=== PATIENT | female | born 1990 | race Caucasian/White ===

== ENCOUNTER 2020-05-20 13:13 | Inpatient (IN) | payer BC ==
[~2020-05-20] VITALS: Ht 154.9 cm; Wt 65.8 kg
--- NOTE | 2020-05-20 13:25 | NUR ---
Pt c/o upper Q ABD pain x3 days with n/d (watery, green), associated upper back pain, and occasional right flank pain. Pt denies CP, SOB, dizziness, no other complaints, no distress noted.
[2020-05-20] MEDS ORDERED: IV NORMAL SALINE 1000 ML BAG IV ONE (13:45)
[2020-05-20 14:11] LABS: BASOPHILS % (AUTO) 0.4 % (0.0-2.0); EOSINOPHILS % (AUTO) 0.3 % (0.0-7.0); HEMATOCRIT 42.5 % (31.2-41.9); HEMOGLOBIN 14.9 g/dL (10.9-14.3); LYMPHOCYTES # (AUTO) 1.1 K/uL (20.0-40.0); LYMPHOCYTES % (AUTO) 22.1 % (20.5-51.5); MEAN CORPUSCULAR HGB CONC 35 g/dL (32.3-35.6); MEAN CORPUSCULAR VOLUME 91.6 fL (75.5-95.3); MONOCYTES # (AUTO) 0.6 K/uL (2.0-10.0); MONOCYTES % (AUTO) 12.8 % (0.0-11.0); NEUTROPHILS # (AUTO) 3.1 K/uL (1.8-8.9); NEUTROPHILS % (AUTO) 64.4 % (38.5-71.5); PLATELET COUNT (AUTO) 285 K/uL (179-408); RED BLOOD CELL COUNT(AUTO) 4.64 MIL/uL (3.63-4.92); WHITE BLOOD COUNT (AUTO) 4.8 K/uL (3.8-11.8)
[2020-05-20 14:21] LABS: BILIRUBIN,DIRECT 0.2 mg/dL (0.0-0.2); BILIRUBIN,TOTAL 0.5 mg/dL (0.2-1.0); CREATININE 0.8 mg/dL (0.6-1.3); POTASSIUM 3.1 mmol/L (3.5-5.1); TOTAL PROTEIN, SERUM 7.7 g/dL (6.4-8.2)
--- NOTE | 2020-05-20 15:53 | NUR ---
Swabbed pt for Covid test, took to lab. Pt in bed, no complaints, no distress noted.
[2020-05-20] MEDS ORDERED: ONDANSETRON 4 MG/2 ML VIAL IV PRN (16:00)
[2020-05-20] MEDS ORDERED: Z GUARD REMEDY PASTE 57 GM TUBE TOP PRN (16:00)
[2020-05-20 16:18] LABS: *BLOOD, URINE 2+ (NEGATIVE); *CLARITY,URINE CLOUDY (CLEAR); *COLOR,URINE YELLOW (YELLOW); *KETONES,URINE 2+ (NEGATIVE); *UROBILINOGEN,URINE 0.2 E.U./dl (NORMAL); LEUKOCYTE ESTERASE ,URINE NEGATIVE (NEGATIVE); NITRITE, URINE NEGATIVE (NEGATIVE); UGLUCOSE NEGATIVE (NEGATIVE)
[2020-05-20 16:19] LABS: *BILIRUBIN,URIN 1+ (NEGATIVE)
--- NOTE | 2020-05-20 16:27 | NUR ---
Radiology called to say that "Small bowel follow-thru" will be done in AM, w/pt NPO from Midnight. [employer] RECORDER made aware.
--- NOTE | 2020-05-20 18:04 | NUR ---
Called report to ARTURO Gaitan.
[2020-05-20 18:17] LABS: WBC,URINE 0-3 /HPF (0-3)
[2020-05-20 18:18] LABS: BACTERIA,URINE RARE /HPF (NONE SEEN); SQUAMOUS EPITHELIAL CELL,UR FEW /HPF (NONE SEEN); URINE AMORPHOUS URATE MODERATE /HPF
--- NOTE | 2020-05-20 18:35 | NUR ---
Pt received on the unit, oriented to the floor. Pt states she has a tolerable pain level of 3/10 pain to right upper abdomen, same as when she was admitted. No acute distress. Pt has right AC 20 matilda IV, intact, and patent. Plan of care discussed including NPO at midnight for small bowel follow through Xray tomorrow and GI consult. Skin intact. NKA. Requests further information on DNR measures. All comfort and safety needs attended to at this time. Call light placed within reach. Will continue to monitor and endorse to oncoming [employer] shift lead.
[2020-05-20 18:38] VITALS: BP 144/65
--- NOTE | 2020-05-20 19:30 | NUR ---
Pt in bed awake. Pt c/o of 3/10 pain in the right upper abdomen. Will assess and check if PRN pain medication is already available. RAC is intact. Pt's current K level is 3.1. Will carry out order for 4 bags (40meq total) of KCL. Pt is NPO. Otherwise, V/S stable on room air. Safety measures in place. Call light within reach. Will continue with the plan of care.
[2020-05-20] MEDS: POTASSIUM CHLORIDE 50 ML IV SCH ×4 (20:11→23:51)
[2020-05-20] MEDS: IV NS 1000 ML 1,000 ML IV PRN (20:12)
[2020-05-20] MEDS: MORPHINE SULFATE 2 MG/1 ML DISP.SYRIN IV PRN ×2 (20:34→20:38)
[2020-05-20 21:13] VITALS: BP 129/78
[2020-05-21 05:29] VITALS: BP 100/56
[2020-05-21] MEDS: PANTOPRAZOLE SODIUM 40 MG TABLET.DR PO SCH (06:04)
[2020-05-21] MEDS: IV NS 1000 ML 1,000 ML IV PRN ×2 (06:05→19:36)
--- NOTE | 2020-05-21 06:59 | NUR ---
Pt slept intermittently through the night. Pt c/o 3/10 abdominal pain but refused to take any pain medication. V/S stable, on room air. IV is intact with NS running at 125cc. Pt still on NPO for further evaluation. Comfort care and needs attended. Safety measures in place. Call light within reach. Will endorse to the oncoming nurse accordingly.
--- NOTE | 2020-05-21 07:45 | NUR ---
Received patient awake, alert oriented x4, not in any form of distress. She complained of 3/10 abdominal pain , offered PRN pain medication as ordered but patient refused and stated it is tolerable. Maintained on NPO, patient well aware. Peripheral IV line on the right AC, no signs of infection, patent, with NS running at 125cc/hr. Assisted with her needs. Call light and frequently used items placed within patient's reach. Will continue to monitor.
[2020-05-21 07:53] LABS: BASOPHILS % (AUTO) 0.4 % (0.0-2.0); EOSINOPHILS % (AUTO) 0.5 % (0.0-7.0); HEMOGLOBIN 12.9 g/dL (10.9-14.3); LYMPHOCYTES # (AUTO) 1.3 K/uL (20.0-40.0); LYMPHOCYTES % (AUTO) 31.4 % (20.5-51.5); MEAN CORPUSCULAR HGB CONC 35 g/dL (32.3-35.6); MEAN CORPUSCULAR VOLUME 91.8 fL (75.5-95.3); MONOCYTES # (AUTO) 0.6 K/uL (2.0-10.0); MONOCYTES % (AUTO) 14.8 % (0.0-11.0); NEUTROPHILS # (AUTO) 2.2 K/uL (1.8-8.9); NEUTROPHILS % (AUTO) 52.9 % (38.5-71.5); PLATELET COUNT (AUTO) 268 K/uL (179-408); RED BLOOD CELL COUNT(AUTO) 4.03 MIL/uL (3.63-4.92); WHITE BLOOD COUNT (AUTO) 4.2 K/uL (3.8-11.8)
[2020-05-21 08:29] LABS: THYROID STIMULATING HORMONE 3.735 mIU/mL (0.358-3.740)
[2020-05-21 08:33] LABS: CARBON DIOXIDE 25 mmol/L (21-32); CHLORIDE 105 mmol/L (98-107); CREATININE 0.5 mg/dL (0.6-1.3); GLUCOSE 67 mg/dL (74-106); MAGNESIUM 2.3 mg/dL (1.8-2.4); PHOSPHOROUS 2.7 mg/dL (2.5-4.9); POTASSIUM 3.6 mmol/L (3.5-5.1); UREA NITROGEN, BLOOD 8 mg/dL (7-18)
[2020-05-21] MEDS ORDERED: DIATR MEGLU/DIATRIZOATE SODIUM 30 ML BOTTLE ONE (08:54)
[2020-05-21] MEDS ORDERED: BARIUM SULFATE 450 ML ORAL.SUSP ONE (08:54)
[2020-05-21] MEDS ORDERED: BARIUM SULFATE 340 GM ONE (08:58)
[2020-05-21 11:30] VITALS: BP 113/68
--- NOTE | 2020-05-21 14:15 | NUR ---
Small bowel follow through x-ray result relayed to ANNA Tavares and ordered clear liquid diet.
[2020-05-21 16:00] VITALS: BP 120/77
[2020-05-21 20:30] VITALS: BP 113/68
[2020-05-22] MEDS: IV NS 1000 ML 1,000 ML IV PRN (03:32)
[2020-05-22 04:44] VITALS: BP 106/55
[2020-05-22] MEDS: PANTOPRAZOLE SODIUM 40 MG TABLET.DR PO SCH (06:02)
--- NOTE | 2020-05-22 07:00 | NUR ---
Received patient awake, alert oriented x4, not in any form of distress. Peripheral IV line on the right AC, no signs of infection, patent, with NS running at 125cc/hr. Assisted with her needs. Call light with in reach Will continue to monitor.
[2020-05-22 07:44] LABS: CREATININE 0.7 mg/dL (0.6-1.3); POTASSIUM 3.4 mmol/L (3.5-5.1)
[2020-05-22 07:45] LABS: BASOPHILS % (AUTO) 0.6 % (0.0-2.0); EOSINOPHILS % (AUTO) 0.6 % (0.0-7.0); HEMOGLOBIN 14.3 g/dL (10.9-14.3); LYMPHOCYTES # (AUTO) 1.6 K/uL (20.0-40.0); LYMPHOCYTES % (AUTO) 35.5 % (20.5-51.5); MEAN CORPUSCULAR HEMOGLOBIN 31.8 uug (24.7-32.8); MEAN CORPUSCULAR HGB CONC 35 g/dL (32.3-35.6); MEAN CORPUSCULAR VOLUME 91.4 fL (75.5-95.3); MONOCYTES # (AUTO) 0.5 K/uL (2.0-10.0); MONOCYTES % (AUTO) 11.4 % (0.0-11.0); NEUTROPHILS # (AUTO) 2.3 K/uL (1.8-8.9); NEUTROPHILS % (AUTO) 51.9 % (38.5-71.5); PLATELET COUNT (AUTO) 299 K/uL (179-408); RED BLOOD CELL COUNT(AUTO) 4.49 MIL/uL (3.63-4.92); WHITE BLOOD COUNT (AUTO) 4.5 K/uL (3.8-11.8)
[2020-05-22] MEDS ORDERED: POTASSIUM CHLORIDE 20 MEQ TAB.PRT.SR PO ONE ×2 (10:15→17:15)
[2020-05-22 10:57] VITALS: BP 107/69
--- NOTE | 2020-05-22 13:00 | NUR ---
pt tolerated regular diet no c/o pain noted
[2020-05-22 16:03] VITALS: BP 114/70
[2020-05-22] MEDS ORDERED: HYDR-4384 PO (17:09)
[2020-05-22] MEDS ORDERED: DICY10CA13 PO (17:09)
--- NOTE | 2020-05-22 18:03 | NUR ---
dc orders received noted and carried out.dc heplock per md orders.dc instruction and education given to the pt .pt said she will follow up with her pcp in one week.pt left the facility via private car in stable condition
== END 2020-05-22 18:05 | disposition home or self-care (01) | DRG 387 ==
LOC: ER 13:13 → MEDSURG3 17:57
PROVIDERS: ADMIT Nurse Practitioner Acute Care; ATTEND Nurse Practitioner Acute Care
DX: K50.90 Crohn's disease, unspecified, without complications (principal); E87.6 Hypokalemia; K57.30 Diverticulosis of large intestine without perforation or abscess without bleeding; R74.0 Nonspecific elevation of levels of transaminase and lactic acid dehydrogenase [LDH]; K52.9 Noninfective gastroenteritis and colitis, unspecified
CPT/HCPCS: 36415; 74250; 83690; 83735; 84100; 84443; 85025; 87046; A4663; G0378; J2270; J3480; J7030; Q9951; Q9963; Q9967

== ENCOUNTER 2020-05-31 08:04 | Outpatient (CLI) | payer BC, OTHER ==
[~2020-05-31 08:04] MED LIST: DICY10CA13 PO; HYDR-4384 PO
[2020-05-31 08:39] LABS: *CLARITY,URINE SLIGHTLY CLOUDY (CLEAR); *COLOR,URINE YELLOW (YELLOW); *KETONES,URINE NEGATIVE (NEGATIVE); *UROBILINOGEN,URINE 0.2 E.U./dl (NORMAL); LEUKOCYTE ESTERASE ,URINE NEGATIVE (NEGATIVE); NITRITE, URINE NEGATIVE (NEGATIVE); PH,URINE 5.5 (5.0-8.0); UGLUCOSE NEGATIVE (NEGATIVE)
[2020-05-31 08:40] LABS: BASOPHILS # (AUTO) 0.1 K/uL (0.0-8.0); BASOPHILS % (AUTO) 1.1 % (0.0-2.0); EOSINOPHILS % (AUTO) 0.4 % (0.0-7.0); HEMATOCRIT 41.6 % (31.2-41.9); HEMOGLOBIN 14.4 g/dL (10.9-14.3); LYMPHOCYTES # (AUTO) 1.6 K/uL (20.0-40.0); LYMPHOCYTES % (AUTO) 29.2 % (20.5-51.5); MEAN CORPUSCULAR HEMOGLOBIN 31.7 uug (24.7-32.8); MEAN CORPUSCULAR HGB CONC 35 g/dL (32.3-35.6); MEAN CORPUSCULAR VOLUME 91.8 fL (75.5-95.3); MONOCYTES # (AUTO) 0.4 K/uL (2.0-10.0); MONOCYTES % (AUTO) 6.8 % (0.0-11.0); NEUTROPHILS # (AUTO) 3.4 K/uL (1.8-8.9); NEUTROPHILS % (AUTO) 62.5 % (38.5-71.5); PLATELET COUNT (AUTO) 306 K/uL (179-408); RED BLOOD CELL COUNT(AUTO) 4.53 MIL/uL (3.63-4.92); WHITE BLOOD COUNT (AUTO) 5.5 K/uL (3.8-11.8)
[2020-05-31 08:41] LABS: *BILIRUBIN,URIN 1+ (NEGATIVE); *BLOOD, URINE TRACE LYSED (NEGATIVE)
[2020-05-31 09:51] LABS: BILIRUBIN,TOTAL 0.6 mg/dL (0.2-1.0); CREATININE 0.8 mg/dL (0.6-1.3); POTASSIUM 3.9 mmol/L (3.5-5.1); TOTAL PROTEIN, SERUM 7.4 g/dL (6.4-8.2)
[2020-05-31 10:32] LABS: BACTERIA,URINE FEW /HPF (NONE SEEN); RBC,URINE 0-3 /HPF (0-3); SQUAMOUS EPITHELIAL CELL,UR FEW /HPF (NONE SEEN); URINE AMORPHOUS URATE MODERATE /HPF; WBC,URINE 0-3 /HPF (0-3)
== END 2020-05-31 23:59 | disposition home or self-care (01) ==
LOC: LAB 08:04
DX: R94.5 Abnormal results of liver function studies (principal); R10.9 Unspecified abdominal pain; R19.7 Diarrhea, unspecified
CPT/HCPCS: 36415; 85025; 85651; 86140

== ENCOUNTER 2020-06-17 07:53 | Outpatient (CLI) | payer BC, OTHER ==
[2020-06-17 08:26] LABS: CREATININE 0.8 mg/dL (0.6-1.3)
[2020-06-17 10:32] LABS: *URINE HCG, QUAL NEG (NEGATIVE)
[2020-06-17] MEDS ORDERED: IOHEXOL 300MG/ML 100 ML INFUS..BTL ONE (10:45)
[2020-06-17] MEDS ORDERED: IV NORMAL SALINE 250 ML IV ONE (10:45)
[2020-06-17] MEDS ORDERED: SWABABLE VALVE TRANSFER SET EA MC ONE (10:45)
== END 2020-06-17 23:59 | disposition home or self-care (01) ==
LOC: LAB 07:53
DX: K57.30 Diverticulosis of large intestine without perforation or abscess without bleeding (principal); K59.39 Other megacolon; R94.4 Abnormal results of kidney function studies; Z32.00 Encounter for pregnancy test, result unknown
CPT/HCPCS: 36415; 74178; 82565; 84520; 84703; Q9967; J7050

== ENCOUNTER 2021-09-02 19:24 | Emergency (ER) | payer BC, OTHER ==
[~2021-09-02] VITALS: Ht 154.9 cm; Wt 56.7 kg
[2021-09-02 20:04] VITALS: BP 125/74
--- NOTE | 2021-09-02 20:04 | NUR ---
Patient discharged to home in stable condition. Written and verbal after care instructions given. Patient verbalizes understanding of instructions. Stressed follow up or return to ER for worsening s/s.
== END 2021-09-02 20:05 | disposition home or self-care (01) ==
LOC: ER 19:29
DX: S40.862A Insect bite (nonvenomous) of left upper arm, initial encounter (principal); W57.XXXA Bitten or stung by nonvenomous insect and other nonvenomous arthropods, initial encounter; Y92.89 Other specified places as the place of occurrence of the external cause
CPT/HCPCS: A4663